=== PATIENT | male | born 1995 | race African-American/Black ===

== ENCOUNTER 2025-04-14 16:41 | Emergency (ER) | payer SELFPAY ==
[~2025-04-14] VITALS: Ht 165.1 cm; Wt 69.2 kg
[2025-04-14 16:44] VITALS: TEMP 97.8; O2SAT 98
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
[2025-04-14 17:06] LABS: MEAN PLATELET VOLUME 7.7 FL (7.4-10.4); RED CELL DISTRIBUTION WIDTH 17.4 % (11.5-14.5)
[2025-04-14 17:19] LABS: CREATININE 1.45 MG/DL (0.60-1.10); eCRCL 64 ML/MIN; eGFR 57 ML/MIN
[2025-04-14 17:30] LABS: TOTAL CARBON DIOXIDE 11.2 MMOL/L (24-32)
[2025-04-14] MEDS: normal saline 1000ML IV soln IVB ONE (17:30)
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
[2025-04-14 18:20] VITALS: BP 140/122; PULSE 129; RESP 20
== END 2025-04-14 19:03 ==
LOC: ER 16:42
DX: S20.211A Contusion of right front wall of thorax, initial encounter (principal); R00.0 Tachycardia, unspecified; X58.XXXA Exposure to other specified factors, initial encounter; Y93.89 Activity, other specified; Y92.89 Other specified places as the place of occurrence of the external cause; Y99.8 Other external cause status
CPT/HCPCS: 36415; 71045; 80053; 82550; 85025; 96360; 99284; J7030